=== PATIENT | female | born 1980 | race Caucasian/White ===

== ENCOUNTER 2018-11-29 15:39 | Emergency (ER) | payer MEDICAID ==
[2018-11-29 15:58] VITALS: Wt 143.2 kg
[2018-11-29] MEDS ORDERED: TYLENOL W/CODEI1 TAB PO (18:05)
[2018-11-29] MEDS ORDERED: MEDROL DOSE PACK4 MG PO (18:07)
[2018-11-29 18:21] VITALS: BP 122/77
== END 2018-11-29 18:22 | disposition home or self-care (01) ==
LOC: D.ER 15:39
DX: S39.012A Strain of muscle, fascia and tendon of lower back, initial encounter (principal); W18.30XA Fall on same level, unspecified, initial encounter; Y93.89 Activity, other specified; Y92.89 Other specified places as the place of occurrence of the external cause; M54.32 Sciatica, left side